=== PATIENT | female | born 1985 | race Caucasian/White ===

== ENCOUNTER → 2017-10-08 09:25 | Outpatient (CLI) | payer SELFPAY ==
[2017-10-08 12:29] LABS: Group B Strep DNA By PCR Negative (Negative); Internal Control PASS; Probe Check PASS; Specimen Processing Control PASS
== END ==
PROVIDERS: Family Provider Family Medicine; PCP Family Medicine; Visit Provider Obstetrics & Gynecology
DX: Z36.85 Encounter for antenatal screening for Streptococcus B (principal)
CPT/HCPCS: 87081; 87653

== ENCOUNTER 2017-10-27 04:17 | Inpatient (IN) | payer SELFPAY ==
[2017-10-21 09:36] VITALS: BMI 33.3
[2017-10-26 08:30] VITALS: BP 118/63; PULSE 76; RESP 18; TEMP 36.2; O2SAT 96
[2017-10-26 08:45] VITALS: BP 110/59; PULSE 74; RESP 18; TEMP 36.4; O2SAT 97
[2017-10-26 09:00] VITALS: BP 123/69; PULSE 73; RESP 18; TEMP 36.4; O2SAT 96
[2017-10-27] VITALS (16 sets, daily range): BP systolic 105–131; BP diastolic 49–85; PULSE 61–81; RESP 14–20; TEMP 35.6–36.6; O2SAT 95–100
[2017-10-27] MEDS: Lactated Ringers 1,000 ML 999 ML IV (05:05)
[2017-10-27 05:08] LABS: ROM Internal Control Test YES-OK TO RESULT pt. (Internal QC); ROM Patient Test POSITIVE (Negative)
[2017-10-27 05:44] LABS: Absolute Lymphocyte Count 2.63 X10^3/ul (0.83-4.51); Absolute Neutrophil Count 5.8 X10^3/uL (2.0-7.7); Basophil# 0.04 X10^3/uL; Basophil% 0.4 % (0-1); Eosinophils% 3.2 % (0-5); Hematocrit 34.4 % (37-47); Hemoglobin 11.4 g/dl (12.0-15.0); Lymphocyte # 2.63 X10^3/ul (4.0); Lymphocyte % 27.7 % (19-41); Mean Corp Hgb Conc 33.1 g/gl (32-36); Mean Corpuscular Hgb 27.1 pg (27.0-32.0); Mean Corpuscular Volume 81.9 fL (81-99); Monocyte# 0.69 X10^3/uL; Monocyte% 7.3 % (0-10); Neutrophil # 5.82 X10^3/uL (2.7-7.7); Neutrophil % 61.2 % (47-70); Platelet Count 271 K/mm3 (150-450); RBC Distribution Width CV 14.5 % (11.6-14.6); RBC Distribution Width SD 41.8 fl (35.1-43.9); White Blood Count 9.5 K/mm3 (4.4-11.0)
[2017-10-27 05:46] LABS: POSITIVE COUNT NO; POSITIVE DIFFERENTIAL NO; POSITIVE MORPHOLOGY NO
[2017-10-27 05:47] LABS: Prothrombin Time (Protime)PT. 13.4 SECONDS (11.7-14.9)
[2017-10-27 05:56] LABS: Partial Thromboplast Time 30.3 Seconds (24.1-36.2)
[2017-10-27] MEDS: Lactated Ringers 1,000 ML 150 ML IV (06:53)
[2017-10-27] MEDS: Sodium Citrate/Citric Acid 30 ML UDC PO (06:54)
[2017-10-27] MEDS: Cefazolin 2 GM in 0.9% Normal Saline 100 ML IV (06:54)
--- NOTE | 2017-10-27 07:32 | PCM.OP.BLANK ---
Operative Report Date of Procedure: 10/27/17 Surgeon: Jarad Goldsmith MD, FACOG [employer] Professor: CHENG Deshpande Anesthesia: Suzanne Smith MD Anesthesia: Spinal with Duramorph Pre-op Diagnosis: - -Prior Section Post-Op Diagnosis: - -Prior Section Procedure: Repeat Low Transverse Cervical Caesarean Section Findings: Viable male with Apgars of 9/9 in occiput anterior presentation with clear amniotic fluid and normal three-vessel placenta. Indication: This is a 32-year-old who presents for her second at 39+ weeks gestation. She presented this morning with rupture of membranes at approximately 3 AM on the date of her scheduled . care has otherwise been uneventful. The patient has been counseled regarding the risk and indications of this procedure including the possibility of bleeding infection and injury to surrounding structures such as bowel bladder. All questions were answered. Procedure: Patient was taken to the operating room where after spinal anesthesia was placed, the patient was prepped and draped in usual sterile fashion and a Pond catheter was placed. The abdomen was entered through the patient's prior Pfannenstiel incision and peritoneum was entered bluntly. After developing a bladder flap on the lower uterine segment a low transverse incision was made on the uterus and head was easily delivered onto the operative field the nose mouth and oropharynx were bulb suctioned. Subsequently a viable male infant was born with Apgars of 9/9. The infant was noted to cry move all extremities vigorously on the operative field. The umbilical cord was doubly clamped and ligated and infant handed to the nursery personnel who were present for the delivery. Placenta was delivered and noted to be 3 vessels and normal. Uterus was exteriorized and remaining placental tissue was removed. The uterus was then closed in 2 layers first with running locked Number 1 Vicryl suture followed by a second imbricating layer with Number 1 Vicryl suture. Number 1 Vicryl suture was then used in a horizontal mattress interrupted fashion to affect final hemostasis of the uterine incision line. Normal fallopian tubes and ovaries were visualized and the uterus was returned to the pelvis. Hemostasis was noted and rectus abdominis muscles were reapproximated in the midline with interrupted Number 1 Vicryl suture in a horizontal mattress fashion. Fascia was closed with running Number 1 PDS Strata fix suture. Subcutaneous tissue was irrigated with copious amounts of saline solution and then closed with running 3-0 Vicryl suture. Skin was closed with 4-0 monocryl suture in a running subcuticular fashion. Steri strips, telfa, and tape were placed across the incision. The patient tolerated the procedure well and was taken to the recovery room in satisfactory condition. Sponge, needle, and instrument counts were all reportedly correct. EBL was less than 500 cc. Ancef 2 gms IV was given prior to the procedure. Spicemen to Pathology: None Complications: None
--- NOTE | 2017-10-27 07:36 | DCINST_ITS ---
Discharge Diet: No Restrictions Discharge Activity: May Not Drive, May not drive while taking narcotic pain medications., May Shower, May Take a Tub Bath May resume sexual activity in: 4-6 weeks Lifting Restrictions: 20 pounds Additional Activity Instructions:: Nothing in the vagina for 4-6 weeks. You may return to work/school in 6 weeks. Call your doctor if your incision/area has: Continuous Slow Oozing, Sudden Increased Bleeding, Increased Pain/ Swelling, Increased Redness, Foul Smelling Discharge Call your doctor if you observe: Fever of 101 or Higher, Inability to urinate, Inability to have a bowel movement, Using more than one pad per hour Additional Instructions: If you experience any of the following, contact your healthcare provider. * Unrelieved incision or abdominal pain * Swelling, redness, discharge or bleeding from your incision or episiotomy site * Your incision begins to separate * Problems urinating (including inability to urinate or burning while urinating) . * Visual changes * Severe headache * Flu-like symptoms * Pain or redness in one of both of your breasts * Pain, warmth, tenderness or swelling in your legs, especially the calf area * Frequent nausea and vomiting * Symptoms of depression or anxiety If you experience any of the following, call 911 or go to the nearest Emergency Room. * Chest pain * Problems breathing * Seizure activity * Partial or complete paralysis of a body part, slurred speech, weakness or drooping of the face, or a sudden inability to walk or hold your balance Allergies/Adverse Reactions: Allergies No Known Allergies Allergy (Verified 10/27/17 06:34) Medications to take at Discharge Bisacodyl [Dulcolax] 5 mg PO BID PRN 10/21/17 Doxylamine Succinate [Unisom Sleep Aid] 12.5 mg PO QHS 10/21/17 Vits [Prenatabs FA ] 1 tablet PO DAILY 10/21/17 Docusate Sodium [Colace] 100 mg PO BID PRN PRN #60 cap 10/27/17 Oxycodone [Oxyir] 5 mg PO Q6H PRN PRN 7 Days #20 tab 10/27/17 The following prescriptions were given: Oxycodone [Oxyir] 5 mg PO Q6H PRN PRN 7 Days #20 tab PRN Reason: Severe Pain () Docusate Sodium [Colace] 100 mg PO BID PRN PRN #60 cap PRN Reason: Constipation Follow-Up: Call to make an appointment with your doctor for an incision check in 1-2 weeks. You will also need a 6 week post- follow up appointment. Please Follow Up With: Jarad Goldsmith MD - [phone] When: Call to make an appointment for an incision check in 2 weeks. Primary Care Physician: Charles Dumont MD [Primary Care Provider] -
[2017-10-27] MEDS: Oxytocin 30 units/NS 500 ml 30 UNITS/500 ML IV.SOLN 167 UNITS IV (07:44)
[2017-10-27] MEDS: Ondansetron 4 MG/2 ML Vial IV (09:34)
[2017-10-27] MEDS: Lactated Ringers 1,000 ML 100 ML IV ×2 (09:37→15:06)
[2017-10-27] MEDS: proMETHazine 25 MG/ML Syringe 12.5 MG IV (10:03)
[2017-10-27] MEDS: Ketorolac 30 MG/ML Syringe IV ×3 (12:38→23:20)
[2017-10-27] MEDS: Cefazolin 1 GM/50 ML BAG IV ×2 (14:57→22:55)
[2017-10-27] MEDS: 0.9% Saline Lock 10 ML Syringe IV ×3 (20:40→23:20)
--- NOTE | 2017-10-27 21:51 | NURSING ---
pt walked in halls and now back to bed, states she did not walk very far. Pt asking if she should try to breastfeed and RN encouraged this as infant was showing feeding cues. RN asked pt to try and breastfeed infant and this RN will stay in room. Pt appears very cautious and uncomfortable holding infant, needs much reassurance with positioning at breast.
[2017-10-28] VITALS (8 sets, daily range): BP systolic 99–114; BP diastolic 53–66; PULSE 70–82; RESP 12–18; TEMP 36.1–36.8; O2SAT 97
[2017-10-28 05:05] LABS: Hematocrit 30.1 % (37-47); Hemoglobin 9.8 g/dl (12.0-15.0); Mean Corp Hgb Conc 32.6 g/gl (32-36); Mean Corpuscular Volume 82.9 fL (81-99); Mean Platelet Vol. 9.7 fl (6.2-12.0); Platelet Count 227 K/mm3 (150-450); RBC Distribution Width CV 14.8 % (11.6-14.6); Red Blood Count 3.63 M/mm3 (4.2-5.4); White Blood Count 9.9 K/mm3 (4.4-11.0)
[2017-10-28 05:08] LABS: Scan Indicated on CBC? Y/N NO
[2017-10-28] MEDS: 0.9% Saline Lock 10 ML Syringe IV ×4 (05:14→23:42)
[2017-10-28] MEDS: Ketorolac 30 MG/ML Syringe IV ×4 (05:14→23:40)
--- NOTE | 2017-10-28 07:23 | PN.OBGYN_ITS ---
Subjective: POD#1 repeat C/S Doing well. Pain control adequate. Baby 8# 1 oz. Attempting to breast feed, but baby not doing well with this. Plans to bring in pump from home and begin pumping. Quintana still in place. Has been up to chair and now back in bed. - Physical Exam General: Alert, Oriented x3, Cooperative, No apparent distress HEENT: Atraumatic Neck: Supple Abdomen: Soft - Fundus firm minimally tender consistent with postop status, 3 cm inferior to umbilicus Skin: Incision - telfa paper tape in place, CDI. removed. Steristrips intact and dry Neurological: Cranial nerves II-XII grossly intact Psych/Mental Status: Normal Affect Vital Signs Temp Pulse Resp BP Pulse Ox 97.7 F L 78 18 110/59 L 97 10/28/17 04:30 10/28/17 04:30 10/28/17 04:30 10/28/17 04:30 10/28/17 04:30 Oxygen Delivery Method Room Air Weight: 102.4 kg Body Mass Index (BMI) 33.3 Intake and Output for Last 24 Hours 10/26/18 18 18 23:59 23:59 23:59 Intake Total 600 / 600 2433 / 2433 Output Total 250 / 250 1050 / 1050 Balance 350 / 350 1383 / 1383 Laboratory Tests Past 24 Hrs 10/27/17 10/28/17 05:05 04:35 WBC 9.9 RBC 3.63 L Hgb 9.8 L Hct 30.1 L MCV 82.9 MCH 27.0 MCHC 32.6 RDW 14.8 H RDW Differential 43.0 Plt Count 227 MPV 9.7 Blood Type O POSITIVE Antibody Screen NEGATIVE Medical Necessity - Tobacco Use Smoking Status: Never smoker Assessment/Plan POD#1 Repeat C section Stable postop. Increase diet and activity as tolerated. Begin po meds. D/ C quintana for voiding trial Acute blood loss anemia. Ferrous sulfate bid ordered Continue routine care.
[2017-10-28] MEDS: Ferrous Sulfate 325 MG Tablet PO ×2 (08:39→17:18)
[2017-10-28] MEDS: oxyCODONE 5 MG Tablet PO ×4 (08:39→21:18)
[2017-10-28] MEDS: Senna/Docusate Sodium 1 Tablet PO (08:40)
--- NOTE | 2017-10-28 15:37 | NURSING ---
1530 Baby has not nursed since 1114 but had a circ procedure since previous feeding and is very sleepy and not interested in suckling so kept baby skin to skin for 30-45 min and will try to latch again. Bety XIAO
[2017-10-29 02:15] VITALS: BP 105/62; PULSE 72; RESP 16; TEMP 36.2
[2017-10-29] MEDS: Ketorolac 30 MG/ML Syringe IV (06:02)
[2017-10-29] MEDS: 0.9% Saline Lock 10 ML Syringe IV (06:02)
[2017-10-29] MEDS: oxyCODONE 5 MG Tablet PO ×2 (06:34→14:07)
[2017-10-29 08:45] VITALS: BP 94/61; PULSE 69; RESP 18; TEMP 35.9; O2SAT 95
[2017-10-29] MEDS: Senna/Docusate Sodium 1 Tablet PO (09:14)
--- NOTE | 2017-10-29 09:39 | PCM.PN.OB ---
Subjective: Patient without complaints. Tolerating diet well. Denies flatus or BM. Denies pain. - Physical Exam Vital Signs AF, VSS Temp Pulse Resp BP Pulse Ox 97.1 F L 72 16 105/62 97 10/29/17 02:15 10/29/17 02:15 10/29/17 02:15 10/29/17 02:15 10/28/17 06:30 Oxygen Delivery Method Room Air Weight: 225 lb 12.054 oz Body Mass Index (BMI) 33.3 Intake and Output for Last 24 Hours 10/27/17 10/28/17 10/29/17 23:59 23:59 23:59 Intake Total 2433 / 2433 Output Total 1050 / 1050 4700 / 4700 Balance 1383 / 1383 -4700 / -4700 Wound is clean, dry, intact. Good urine output. Medical Necessity - Tobacco Use Smoking Status: Never smoker Assessment/Plan Doing well. Will release to home with routine instructions if BM or flatus later today. Follow-up in office in 1-2 weeks for incision check.
[2017-10-29] MEDS: Ibuprofen 600 MG Tablet PO (12:12)
[2017-10-29] MEDS: Bisacodyl 10 MG Suppository RECTAL (12:13)
== END 2017-10-29 16:40 | disposition home or self-care (01) | DRG 765 ==
PROVIDERS: Obstetrics & Gynecology; Admitting Provider Obstetrics & Gynecology; Family Provider Family Medicine; PCP Family Medicine; Visit Provider Obstetrics & Gynecology
PROC: 10D00Z1 Extraction of Products of Conception, Low, Open Approach (ICD-10-PCS; CPT 59514; principal; 2017-10-27 07:15)
DX: O34.211 Maternal care for low transverse scar from previous cesarean delivery (principal); D62 Acute posthemorrhagic anemia; O99.02 Anemia complicating childbirth; Z37.0 Single live birth; Z3A.39 39 weeks gestation of pregnancy
CPT/HCPCS: 59025; 84112; 85025; 85027; 85610; 85730; 86850; 86900; 93460; 99218; J7120; A4216; G0378; J2405

== ENCOUNTER → 2018-12-17 | Outpatient (CLI) | payer SELFPAY ==
[2018-12-20 13:09] LABS: HPV Reflexed? NOT INDICATED
== END | disposition home or self-care (01) ==
LOC: LABSPEC 11:28
PROVIDERS: Family Provider Family Medicine; PCP Family Medicine; Visit Provider Obstetrics & Gynecology
DX: Z12.4 Encounter for screening for malignant neoplasm of cervix (principal)
CPT/HCPCS: 87624; 88175; G0145

== ENCOUNTER → 2020-08-01 | Outpatient (CLI) | payer SELFPAY ==
[2017-10-21 09:36] VITALS: BMI 33.3
[2020-08-04 20:13] LABS: HPV Reflexed? NOT INDICATED
== END | disposition home or self-care (01) ==
LOC: LABSPEC 11:46
PROVIDERS: PCP Family Medicine; Visit Provider Obstetrics & Gynecology
DX: Z12.4 Encounter for screening for malignant neoplasm of cervix (principal)
CPT/HCPCS: 88175; G0145

== ENCOUNTER → 2023-05-26 | Outpatient (CLI) | payer SELFPAY ==
--- NOTE | 2023-05-26 09:26 | BI_ITS ---
MAMMOGRAPHY - BILATERAL DIAGNOSTIC REASON FOR EXAM: Female, 38 years old. History of a right upper breast bruise following a fall. Breast tenderness related to the menstrual cycle. PERTINENT HISTORY: Non-contributory. TECHNIQUE: Digital bilateral breast jimi (3D mammographic acquisition) in the CC and MLO projections. 2-D mediolateral oblique (MLO) and craniocaudad (CC) views of both breasts were obtained. CAD: Full Field Digital Mammography with Computer Added Detection was performed. COMPARISON: None. Baseline examination. FINDINGS: Breast Composition: The breasts are heterogeneously dense, which may obscure small masses. There are no dominant masses or suspicious calcifications. No other significant abnormalities are identified. BI/DIAG MAMM W/CAD, BILAT IMPRESSION: Negative diagnostic mammogram. Yearly followup mammogram recommended. (A) ASSESSMENT CATEGORY: BIRADS Category 1: Negative. A letter regarding these results will be sent to the patient by the facility within 30 days. Approximately 10% of breast cancers are not detected by mammography. A normal mammogram should not delay biopsy of a clinically suspicious abnormality. Electronically Signed: Bo Wilhelm MD at 10:50 EST ,
== END | disposition home or self-care (01) ==
PROVIDERS: PCP Family Medicine; Referring Provider Physician Assistant; Visit Provider Physician Assistant
DX: N64.4 Mastodynia (principal)
CPT/HCPCS: 77062; 77066; G0279

== ENCOUNTER 2023-07-18 05:55 | Day surgery (SDC) | payer SELFPAY ==
[2023-07-01 12:21] LABS: Hematocrit 41.3 % (37-47); Hemoglobin 12.8 g/dL (12.0-15.0); Mean Corpuscular Volume 83.9 fL (81-99); Mean Platelet Vol. 9.9 fl (6.2-12.0); Platelet Count 420 K/mm3 (150-450); RBC Distribution Width CV 13.4 % (11.6-14.6); RBC Distribution Width SD 40.8 fl (35.1-43.9); Red Blood Count 4.92 M/mm3 (4.2-5.4); White Blood Count 8.7 K/mm3 (4.4-11.0)
[2023-07-01 13:02] LABS: Anion Gap 7 (5-15); BUN 9 mg/dL (7-18); BUN/Creat Ratio 12.1 RATIO (10-20); Calcium,Total 8.9 mg/dL (8.5-10.1); Chloride 108 mmol/L (98-107); Creatinine, Serum 0.74 mg/dL (0.55-1.02); EST Glomerular Filtration Rate 93 mL/min (>60); Est Glom Filt Rate - Afr Amer 113 mL/min (>60); Glucose 98 mg/dL (74-106); Potassium 4.2 mmol/L (3.5-5.1); Sodium Level 140 mmol/L (136-145)
[2023-07-18] VITALS (9 sets, daily range): BP systolic 116–132; BP diastolic 60–90; PULSE 77–109; RESP 15–18; TEMP 36.3–36.9; O2SAT 93–100; BMI 32.3
--- OUTSIDE RECORDS SUMMARY | 2023-07-18 06:00 | XMS RPT_ITS | CCD ---
Author Name Unknown Address [address] [place] [address] Organization [facility] Care Team Providers Care Lead Simulation Modeling Engineer Name Role Phone PATY, DR EZIO Fenton Attending Unavaila ble PATY, DR EZIO Fenton Primary Care Unavaila ble PATY, DR EZIO Fenton Admitting Unavaila ble YUNIOR SMALLWOOD Consulting Unavailable PROVIDER, UNKNOWN Consulting Unavailable Yunior Smallwood PA-C Unavailable [phone] Yunior Smallwood PA-C Unavailable Plastic Surgery Provider Unavailable Unavail able Luz Maria CANTU, Tahmina Fenton Unavailable Tim CANTU, Charles Candelaria Unavailable Cherelle PEMBERTON, Connor Fenton Unavailable King MARKELLC, Sergei Estrada Unavailable Ginger COKER, Veronica Tsai Unavailable Unavailab christopher Moira RN PATIENT CARE, Tahmina Roberts Unavailable Unavailab christopher Suggs LPN, Hien Unavailable Unavailab le Jamie TOLEDON, Kavita Unavailable Unavailabl e Tristan TOLEDON, Alexa Stoner Unavailable Unavaila ble Unavailable Unavailable Medications Completed/Discontinued Medications Medication Drug Class(es) Dates Sig (Normalized) Sig (Original) amoxicillin 500 mg oral capsule (5 sources) Penicillin-class Antibacterial Start: 03-10-2012 End: 03-19-2012 take 1 capsule by mouth three times daily AMOXICILLIN, 500MG (Oral Capsule) ; 1 (one) Capsule three times daily for 10 days Quantity: 30 {Capsule} Refills: 0 Ordered: 19-Mar-2012 SHEELA Miles Start: 10-Mar-2012 End: 19-Mar-2012 Status: Inactive azithromycin 500 mg oral tablet (10 sources) Macrolide Antimicrobial Start: 12-21-2015 End: 12-24-2015 take 1 tablet by mouth once daily AZITHROMYCIN, 500MG (Oral Tablet) ; 1 (one) Tablet once daily for 3 days Quantity: 3 {Tablet} Refills: 0 Ordered: 21-Dec-2015 MD Charles Dumont Start: 21-Dec-2015 End: 24-Dec-2015 Status: Inactive Problems Active Problems Problem Classification Problem Date Documented Da te Episodic/Chronic Allergic reactions (10 sources) Contact dermatitis and other eczema due to plants [except food] 12-11-2010 Episodic Mycoses (10 sources) Candidiasis of vulva and vagina 07-09-2023 Episodic Nonmalignant breast conditions (20 sources) Breast tenderness; Translations: [Mastodynia] 07-09-2023 Episodic Other connective tissue disease (10 sources) Hand pain; Translations: [Pain in unspecified hand] 07-09-2023 Episodic Other gastrointestinal disorders (10 sources) Constipation; Translations: [Constipation, unspecified] 07-09-2023 Episodic Other infections; including parasitic (10 sources) Post-viral disorder; 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 of other and unspecified infectious and parasitic diseases] 07-09-2023 Chronic Other upper respiratory disease (15 sources) Allergic rhinitis; Translations: [Allergic rhinitis, unspecified] 07-09-2023 Chronic Other upper respiratory infections (20 sources) Sinusitis; Translations: [Chronic sinusitis, unspecified] 07-09-2023 Chronic Other upper respiratory infections (10 sources) Viral upper respiratory tract infection; Translations: [Acute upper respiratory infection, unspecified] 04-01-2016 Episodic Unclassified (5 sources) Well adult female - The patient feels well with minor complaints, has good energy level and is sleeping well. The first day of the last menstrual period was : (03/02/12). Patient has not had a screening mammogram. Date of most recent cholesterol screening : (done through her work - normal). Date of most recent glucose screening : (states had it done for her job a few years ago - was normal). Patient has not received a recent influenza vaccine. Last Tetanus booster: unknown/unsure (Last was about 5 years ago when she cut her finger (given at [facility] The patient has a balanced diet. The patient exercises weekly. The patient sleeps 8 hours per night. Note for Well adult female : Sexually active - in a monogamous relationship. Currently trying to get . 03-26-2012 Past or Other Problems Problem Classification Problem Date Documented Da te Episodic/Chronic Unclassified (5 sources) Pre-operative clearance - Surgical procedure(s) planned: other (Breast reduction). Date of procedure: (07/18/2022) Surgeon: (Dr Naomi Stephens) and Location of procedure: ([place]) There have been no problems with general anesthesia or blood/blood products. Note for Pre-operative clearance : Pt had labs done at [facility] last week, pt had preop visit last week with them. 07-09-2023 Unclassified (5 sources) Well adult female - The patient feels well with minor complaints, has good energy level and is sleeping poorly. The first day of the last menstrual period was : (04/22/2023). The patient is not using any method of contraception at this time. The patient has a balanced diet. The patient does not exercise. The patient sleeps 4 hours per night. Note for Well adult female : Pt had a bad fall last June and had a bad bruise on her right breast, has breast tenderness before period, would like to have mammo or u/s done. Pt would like to discuss breast reduction. Did feel a lump before her last period in right breast but it resolved after her menses. No family history of breast cancer.Did a 12 session counseling program which helped with mood. Feels really flat and grouchy. Worse going into summer months. Still functioning ok. Sleep isn't great but no daytime somnolence. When doing the counseling they had wanted her to see the psychiatrist to discuss medication but she didn't want to do that in fear of gaining weight. Taking a standard process (from Dr. Chin) product to help with this. 05-15-2023 Unclassified (5 sources) Cold Symptoms - Symptoms include dry cough and headache (comes and goes. non today.), but do not include productive cough. The onset was gradual 10 day(s) ago. The symptoms occur constantly. The patient describes this as mild and unchanged. Current treatment includes non-prescription cold medication and NSAIDs. Risk factors do not include child in daycare or smoking. The patient has not been exposed to an individual with a cough, an individual with an upper respiratory infection, an individual with similar symptoms, an individual with strep or secondhand smoke. Patient denies history of seasonal allergies, recurrent sinusitis, recurrent strep pharyngitis, asthma, tonsillectomy or recurrent ear infections. Note for Upper respiratory infection : was positive for covid last . continues to have cough with chest congestion. she is improving daily. taste/smell has returned. 06-21-2021 Unclassified (3 sources) tingling in hands - Patient is here complaining that she has been having tingling, numbness, hot and swollen hands. Lastn ight was the worst. Has been going on for about 3 months. It is daily. States if she can get up and shake her hands it helps. Her thumbs have been going to sleep. Also her heels feel like they are on fire. No swelling or tingling.She was going to chiro but that did not help. Tried unkers which did help for a couple of days.Has a 6 month old child but didn't have these issues during or immediately .About 10 years ago she did work [employer] 4 days a week x 3 years. All of hands seem to be affected - they felt hot this morning. Usually they are worse first thing in the morning. Doesn't feel like they work well at first and they feel fat. 05-18-2018 Unclassified (3 sources) [ADDITIONAL REASON] Constipation - The onset of the constipation has been gradual (she has been dealing with it for years, really since childhood; said she will drink prune and orange juice daily to help her go but it is still hard; usually has a BM once a week or so; hurts with BMs (like something is tearing) and sometimes has some itching). Note for Constipation : BMs are large and dry. Usually has to chop them up before flushing or use a plunger. 05-18-2018 Unclassified (5 sources) Cold Symptoms - Symptoms include nasal congestion, runny nose, sore throat, dry cough, chills, general malaise and headache. The onset was sudden 3 day(s) ago. The symptoms occur constantly. The patient describes this as moderate in severity and worsening. Current treatment includes acetaminophen and NSAIDs. Risk factors do not include smoking. The patient has not been exposed to secondhand smoke. Patient denies history of tonsillectomy. Note for Upper respiratory infection : Patient complains of painful sores inside her mouth and a rash on her hands that is spreading to her entire body.Has been taking sudafed otc and loratidine.Dizziness was only on Friday. 04-01-2016 Unclassified (5 sources) Allergic rhinitis - The onset of the allergic rhinitis has been acute and has been occurring in an increasing pattern for 5 months. The course has been worsening. The allergic rhinitis is described as moderate. Associated symptoms include itchy eyes, nasal stuffiness, runny nose, sore throat (itchy throat) and watery eyes, while there has been no associated headache, itchy ears, itchy nose, nausea or sinus pain. The symptoms are aggravated by fall season, spring season and summer season. Note for Allergic rhinitis : Has been using Zyrtec daily which helps but not completely. 12-21-2015 Unclassified (5 sources) Cold Symptoms - Symptoms include nasal congestion, runny nose, ear pain, sore throat, dry cough, general malaise and headache, but do not include fever. The onset was sudden 2 day(s) ago. The symptoms occur constantly. The patient describes this as moderate in severity and worsening. Current treatment includes antibiotics (pt treated for sinusitits with amoxicillin on 03/10/12 and bactrim on 03/19/12). Risk factors do not include smoking. The patient has not been exposed to an individual with similar symptoms or secondhand smoke. Medical history includes seasonal allergies and recurrent sinusitis. 03-25-2012 Unclassified (5 sources) Cold Symptoms - Symptoms include sneezing, nasal congestion, runny nose, sore throat, scratchy throat, dry cough and facial pain, but do not include fever or headache. The onset was sudden 1 week(s) ago. The symptoms occur constantly. The patient describes this as moderate in severity and worsening. Current treatment includes non-prescription cold medication and allergy medications. The patient has not been exposed to an individual with similar symptoms. Medical history includes seasonal allergies, but patient denies history of recurrent sinusitis, recurrent strep pharyngitis, asthma, tonsillectomy or recurrent ear infections. 03-10-2012 Unclassified (5 sources) Rash - The onset of the rash has been acute and has been occurring in a persistent pattern for 5 days. The course has been increasing. The rash is characterized as red, raised above the skin and grouped in crops. The rash was first seen on the upper extremity. It spread to the upper extremity and the lower extremity. There has been associated itching. 12-11-2010 Unclassified (2 sources) Constipation - The onset of the constipation has been gradual (she has been dealing with it for years, really since childhood; said she will drink prune and orange juice daily to help her go but it is still hard; usually has a BM once a week or so; hurts with BMs (like something is tearing) and sometimes has some itching). Note for Constipation : BMs are large and dry. Usually has to chop them up before flushing or use a plunger. 05-18-2018 Unclassified (2 sources) [ADDITIONAL REASON] tingling in hands - Patient is here complaining that she has been having tingling, numbness, hot and swollen hands. Lastn ight was the worst. Has been going on for about 3 months. It is daily. States if she can get up and shake her hands it helps. Her thumbs have been going to sleep. Also her heels feel like they are on fire. No swelling or tingling.She was going to chiro but that did not help. Tried unkers which did help for a couple of days.Has a 6 month old child but didn't have these issues during or immediately .About 10 years ago she did work [employer] 4 days a week x 3 years. All of hands seem to be affected - they felt hot this morning. Usually they are worse first thing in the morning. Doesn't feel like they work well at first and they feel fat. 05-18-2018 Results Test Name Value Interpretation Reference Range Facil ity Vital Signs Date Time Vital Sign Value Performing Clinician Jerald ryder 07-09-2023 08:06-0500 Body height 175.26 cm Tahmina Pizarro LPN [facility], [facility]. 07-09-2023 08:06-0500 Body mass index (BMI) [Ratio] 32.64 kg/m2 Tahmina Pizarro LPN [facility], [facility].; [facility], [facility]. 07-09-2023 08:06-0500 Body surface area Derived from formula 2.16 m2 Tahmina Pizarro LPN [facility] [employer] 07-09-2023 08:06-0500 Body weight 100.25 kg Tahmina Pizarro LPN [facility] 07-09-2023 08:06-0500 Diastolic blood pressure 68 mm[Hg] Tahmina Pizarro LPN [email or web address] [employer] [employer] Encounters Encounter Date Encounter Type Care Provider Facility Start: 07-09-2023 End: 07-09-2023 Patient encounter procedure Yunior Smallwood PA-C Work Phone: [facility]. Start: 07-09-2023 End: 07-09-2023 Preprocedural examination done Yunior Smallwood PA-C Work Phone: [facility] [employer] Start: 05-19-2023 End: 05-19-2023 Orders Yunior Smallwood PA-C Work Phone: [facility]. Start: 05-15-2023 End: 05-15-2023 Patient encounter procedure Yunior Smallwood PA-C Work Phone: [facility] [facility]. Start: 05-15-2023 End: 05-15-2023 Patient encounter status Yunior Smallwood PA-C Work Phone: [facility] [employer] Start: 06-21-2021 End: 06-21-2021 Office outpatient visit 10 minutes Yunior Smallwood PA-C Work Phone: [employer]. Start: 06-14-2021 End: 06-14-[address] EZIO NEWMAN [facility] Start: 05-14-2018 End: 05-18-2018 Patient encounter procedure Yunior Smallwood PA-C Work Phone: [employer]. Start: 04-01-2016 End: 04-01-2016 Patient encounter procedure Yunior Smallwood PA-C Work Phone: [employer]. Start: 12-21-2015 End: 12-21-2015 Office outpatient visit 15 minutes Yunior Smallwood PA-C Work Phone: [employer]. Start: 03-30-2012 End: 03-30-2012 Medication Yunior Smallwood PA-C Work Phone: [employer]. Start: 03-26-2012 End: 03-26-2012 Manual pelvic examination Kavita Ayala LPN [facility] [employer] [facility] Start: 03-26-2012 End: 03-26-2012 Patient encounter procedure Yunior Smallwood PA-C Work Phone: [employer] [facility] Start: 03-25-2012 End: 03-25-2012 Patient encounter procedure Yunior Smallwood PA-C Work Phone: [employer]. Start: 03-19-2012 End: 03-19-2012 Medication Yunior Smallwood PA-C Work Phone: [employer]. Start: 03-10-2012 End: 03-10-2012 Patient encounter procedure Yunior Smallwood PA-C Work Phone: [employer] Start: 12-11-2010 End: 12-11-2010 Patient encounter procedure Yunior Smallwood PA-C Work Phone: [employer] [facility] Yunior Smallwood PA-C Work Phone: [employer] [employer] Patient encounter status Tahmina chowdhury LPN [employer] [employer]. Procedures Date Procedure Procedure Detail Performing Clinician Start: 05-19-2023 End: 05-26-2023 Diagnostic mammography computer-aided detcj bi Yunior BEDOLLA-C Work Phone: Start: 05-15-2023 End: 05-15-2023 Depression screening Yunior BEDOLLA -C Work Phone: Start: 05-15-2023 End: 05-15-2023 Scr dep neg, no plan reqd Yunior Carson mcdonough PA-C Work Phone: Start: 07-14-2020 End: 07-14-2020 Microscopic examination of cervical Papanicolaou smear Tahmina Roberts Moira COKER Plan of Treatment Date Care Activity Detail Author Start: 07-09-2023 Ecg routine ecg w/least 12 lds w/i&r ELECTROCARDIOGRAM WITH INTERPRETATION (51546) Start: 09-Jul-2023 Intent Comments: Sinus rhythm; SFB also reviewed [facility]; [facility] Social History Date Type Detail Facility Caffeine Use Caffeine Use [facility]; [facility] Female [facility]; [facility] Work Phone: Tobacco smoking consumption unknown [facility]; [facility] Work Phone: Summary Purpose Family History Cerebrovascular Accident Status:Active Comment s:Paternal Uncle. Diabetes Mellitus Type II Status:Active Commen ts:Maternal Aunt. Cerebrovascular Accident Status:Active Comment s:Paternal Uncle. Diabetes Mellitus Type II Status:Active Commen ts:Maternal Aunt. Cerebrovascular Accident Status:Active Comment s:Paternal Uncle. Diabetes Mellitus Type II Status:Active Commen ts:Maternal Aunt. Cerebrovascular Accident Status:Active Comment s:Paternal Uncle. Diabetes Mellitus Type II Status:Active Commen ts:Maternal Aunt. Cerebrovascular Accident Status:Active Comment s:Paternal Uncle. Diabetes Mellitus Type II Status:Active Commen ts:Maternal Aunt. Advance Directives No Advanced Directives Records FoundNo Advanced Directives Records Found Additional Source Comments INFORMATION SOURCE (unrecogn ized section and content) DATE CREATED AUTHOR AUTHOR'S ORGANIZ ATION 05/21/2023 [facility] FOR RECORDS PERTAINING TO PATIENTS WHO ARE OR HAVE BEEN ENROLLED IN A CHEMICAL DEPENDENCY/SUBSTANCEABUSE PROGRAM, SOME INFORMATION MAY BE OMITTED. This clinical summary was aggregated from multiple sources. Caution should be exercised in using it in the provision of clinical care. This summary normalizes information from multiple sources, and as a consequence, information in this document may materially change the coding, format and clinical context of patient data. In addition, data may be omitted in some cases. CLINICAL DECISIONS SHOULD BE BASED ON THE PRIMARY CLINICAL RECORDS. [facility] [employer] [facility]. provides no warranty or guarantee of the accuracy or completeness of information in this document.
[2023-07-18] MEDS: Lactated Ringers 1,000 ML 15 ML IV (06:36)
[2023-07-18 06:56] LABS: Internal QC Validated? YES +Cl - CLEAR BKGD; Pregnancy, Urine Negative Negative
--- NOTE | 2023-07-18 07:19 | PCM.HP.BLA ---
History and Physical Date of Admission: 07/18/23 The patient is examined and there are no changes to the H&P dated 07/09/23. Pt with bilateral mammary hypertrophy--for bilateral breast reduction. Assessment & Plan Assessment/Plan (1) Chronic back pain: (2) Breast ptosis: (3) Breast hypertrophy: PLAN: Plan For breast reduction
--- NOTE | 2023-07-18 07:30 | BR_PTH ---
PATHOLOGY RESULTS PATIENT: KYLIE MIRANDA [place] [facility] [id number] AGE/SX: 38/F ROOM: RE07/18/[address]: Dr. Naomi Stephens MD : [id number] BED: DIS: 07/18/2023 SPEC #: [id number] RECD: 07/21/23 07:28 STATUS: SHANNON OSWALDO #: [id number] RAYO: 07/18/23 07:[address]: Naomi Stephens DEPT: SURGICAL PATHOLOGY RECD BY: Swathi Bonilla ENTERED: 07/21/23 07:28 SP TYPE: MAMOPLASTY OTHR DR: GRAEME Peacock Tissues: Right breast, NOS Left breast, NOS Procedures: Surgery Specimen Level IV HEADER OPERATION: Bilateral breast reduction PRE-OP DIAGNOSIS: Chronic back pain, breast ptosis, breast hypertrophy TISSUE SUBMITTED: A - Right breast tissue (814 gm), B - Left breast tissue (822 gm) MICROSCOPIC DIAGNOSIS A. Right breast tissue, breast reduction mammoplasty: Benign breast tissue with focal fibrocystic changes, dense fibrosis and intraductal hyperplasia without atypia (814 gm). A minute fibroadenoma (0.2 cm in greatest dimension). Focal fat necrosis and chronic inflammation. B. Left breast tissue, breast reduction mammoplasty: Benign breast tissue with focal dense fibrosis and fibrocystic changes (822 gm). SJ:ava 07/22/2023 MICROSCOPIC DESCRIPTION Slides are reviewed. GROSS DESCRIPTION A - Received in fixative is one container labeled with the patient's name and designated right breast tissue. The specimen consists of multiple pieces of fibroadipose tissue with a few of the pieces showing basilio-white skin, weighing in aggregate 814 gm (weighed in OR) and measuring in aggregate 28.0 x 20.0 x 7.0 cm. No skin lesion is identified. Sections reveal yellow adipose cut surfaces mixed with scant fibrous areas. No mass lesion is identified. [employer] Be[employer] sections are submitted in six cassettes. Cassette 1 contains the skin piece. B - Received in fixative is one container labeled with the patient's name and designated left breast tissue. The specimen consists of multiple pieces of fibroadipose tissue with a few of the pieces showing basilio-white skin, weighing in aggregate 822 gm (weighed in OR) and measuring in aggregate 25.0 x 24.0 x 7.0 cm. No skin lesion is identified. Sections reveal yellow adipose cut surfaces mixed with scant fibrous areas. No mass lesion is identified. [employer] Be[employer] sections are submitted in six cassettes. Cassette 1 contains the skin piece. / MEGHAN:ava 07/21/2023 TC:5 CPT: 23647 x2
[2023-07-18] MEDS: Cefazolin 2 GM in 0.9% Normal Saline (100mL Bag) 100 ML IV (07:45)
[2023-07-18] MEDS: Gentamicin 80 MG/2 ML Vial (08:16)
[2023-07-18] MEDS: Methylene Blue 1% 100 MG/10 ML VIAL (08:16)
[2023-07-18] MEDS: Bupivacaine 0.25% 30 ML Vial (12:57)
--- NOTE | 2023-07-18 13:13 | EX.PCM.DISCH ---
Discharge Instructions Dressing / Incision Additional Dressing/Incision Instructions:: Follow the instructions given in the office. Keep your back elevated to decrease swelling and bruising. Starting tomorrow, take the antibiotic 2 x a day. Follow Up Care Test Results: Test results from this visit will be discussed in further detail at your follow-up appointment, if applicable. Discharge Plan Admission Attending Provider: Naomi Stephens Primary Care Provider: Marcie Smallwood Discharge Orders/Prescriptions Prescriptions: No Action cephalexin 500 mg capsule 500 mg PO BID Qty: 14 0RF All Day Allergy (cetirizine) 10 mg capsule 10 mg PO DAILY PRN (Reason: allergy symptoms) MIN CHEX 1 cap PO DAILY digestive enzymes Capsule 1 cap PO DAILY Rx Instructions: administer with food; swallow whole; do not crush/chew/dissolve/break/cut diphenhydramine HCl [Allergy (diphenhydramine)] 25 mg capsule 25 mg PO QHS PRN PRN (Reason: sleep) Other Ambulatory Orders: ,Urine (Routine) Timeframe: [id number] Facility: [facility] - Location: Laboratory Ordered By: Dr. Bandar Goldsmith Referrals / Follow Up: Charles Dumont MD [Non-Staff] - Disposition Disposition (needs filled in before D/C Order can be placed): Home, Self Care
--- NOTE | 2023-07-18 13:16 | PCM.OPRPT ---
Problems Associated Problem List Diagnoses (1) Chronic back pain: (2) Breast ptosis: (3) Breast hypertrophy: Report of Operation Date of Procedure: 07/18/23 Pre-Operative Diagnosis: Bilateral mammary hypertrophy, chronic neck and back pain Post-Operative Diagnosis: Same Surgery/Procedure Performed:: Bilateral breast reduction (right?814 g; left?822 g) Surgeon: Naomi Stephens test engine evaluator: NINOSKA ANANDtrimmer climber Type of Anesthesia: General Specimen's removed: Breast tissue Drains: None Estimated Blood Loss (mL): 75 cc Description of Procedure: The procedure breast reduction had been thoroughly reviewed with the patient prior to the surgery. The expected pre-, intra, and postoperative course were reviewed. The potential risk and complications of surgery have been reviewed which include but are not exclusive of bleeding, infection, pain, numbness, asymmetry, scar tissue, skin necrosis, the need for further surgery, DVT, and even . She is marked in the preop holding area prior to surgery. Procedure the patient is brought to the operating room and placed under general anesthesia in the supine position. Care is taken to pad all pressure points, apply sequential compression stockings, a Pond catheter, and a warming blanket. The breast and chest are prepped and draped in the usual sterile fashion. We initially began with incising the premarked incisions. Following this, the pedicle of the breast is de-epithelialized. The medial and lateral inferior aspects of the breast are then removed using argon coagulation and passed off the operative field. The pedicle is then from the upper flap and dissection continues cephalad maintaining the upper flap at least 2 cm in thickness. The pedicle is then trimmed in order to allow it to comfortably fit beneath the upper flap. The patient is noted to have evidence of fibrocystic breast tissue. The wound is then irrigated with antibiotic solution and checked for hemostasis which is controlled with with argon coagulation. Following this, the breast is infolded and tacked together with silk suture and skin clips. With a satisfactory size and shape is identified, breast is tacked together initially with Vicryl sutures in the deep subcutaneous tissue. The incisions are then closed in 3 layers using a strata fix suture. Approximately 5 cm from the inframammary crease, the nipple areola is brought out through an opening and tacked in place with interrupted nylon sutures. A strata fix suture is used to further approximate the skin edges in a subcuticular fashion. The identical procedure was performed on the opposite side. Quarter percent plain Marcaine is injected along the incisions. The incisions are then dressed with Xeroform and fluff gauze. She is placed in a surgery bra. She is tolerated the procedure well was taken to the recovery area in an awakening in stable condition. Needle and sponge counts are correct. Complications None Admit VTE Documentation VTE Mechan Device Prophylaxis: SCD's
[2023-07-18] MEDS: Oxycodone/Apap 5/325 Tablet PO (16:22)
== END 2023-07-18 18:17 | disposition home or self-care (01) ==
LOC: SDC 05:56 → AC 05:56
PROVIDERS: Anesthesiology; PCP Physician Assistant; Referring Provider Physician Assistant; Visit Provider Plastic Surgery
PROC: 0H0U0ZZ Alteration of Left Breast, Open Approach (ICD-10-PCS; CPT 19318; principal; 2023-07-18 07:15)
DX: N62 Hypertrophy of breast (principal); N64.81 Ptosis of breast; M54.9 Dorsalgia, unspecified; G89.29 Other chronic pain
CPT/HCPCS: 19318; 00402; 36415; 80048; 81025; 85027; 88305; J7120; J2405